=== PATIENT | male | born 1985 | race Caucasian/White ===

== ENCOUNTER 2024-01-14 19:40 | Emergency (ER) | payer MEDICARE, OTHER, MEDICAID, SELFPAY ==
[2024-01-14 19:58] VITALS: BP 136/97
[2024-01-14 21:37] VITALS: BP 110/98
--- NOTE | 2024-01-14 21:50 | ED.GENMED ---
History of Present Illness
General
Chief Complaint: Eye Problems
Source: patient
Exam Limitations: none
Time Seen by Provider: 01/14/24 20:41
Nursing documentation reviewed up to this point in time: agreed with
Travel History
Have you had any contact with someone who has COVID-19?: No
Do you have any symptoms of coronavirus? Fever > 100 degrees, chills, cough, shortness of breath, sore throat, loss of taste or smell, muscle aches, or headache?: No
History of Present Illness
History of Present Illness:
Patient with history of cerebral palsy, presents to ED secondary to multiple complaints, including eye pain with redness over the past 2 days, along with elevated blood pressure noted at facility, as well as abdominal pain. Denies fever/chills.
Denies vomiting/diarrhea. Denies trauma. Denies coughing. Denies headache. Per aid, patient frequently complaints of generalized body towards the end of day, when he's been sitting in wheelchair for an extended period of time.
Past History
Past History
ED Past Medical History: Seizures and Other (cerebral palsy, spastic quadriplegia, blindness)
ED Past Surgical History: Orthopedic and Other
Social History
Tobacco: Non-smoker
Alcohol: None
Drug: None
Personal: Single
Living: other (residential)
Employment: Not employed
Family History
Family History: Other (Noncontributory)
Review of Systems
Review of Systems
Allergies reviewed?: Yes
All Other Systems: ROS reviewed and negative except as documented in HPI and ROS
Constitutional: Reports no symptoms; Denies fever
EENT: Reports other (eye pain/redness)
Respiratory: Reports no symptoms
Cardiac: Reports no symptoms
ABD/GI: Reports abdominal pain
: Reports no symptoms
Musculoskeletal: Reports no symptoms
Skin: Reports no symptoms
Neurological: Reports no symptoms
Phy Exam
Physical Exam
Physical Exam:
Physical Exam
General: no apparent distress, not acutely ill. afebrile
Head: nc/at. eomi. inject conjunctiva noted, L>R
Neck: supple. no meningeal signs.
Heart: s1/s2 regular rate and rhythm, no murmur. equal radial pulses.
Lungs: no acute respiratory distress. clear bilaterally
Abdomen: normal bowel sounds. mild left lower abdominal/flank tenderness to palpation.
Neuro: alert and oriented. contracted UE, chronic.
Skin: no rash
Psychiatric: well kept. interactive and cooperative
Extremities: no edema. no calf tenderness.
Course
Orders/Labs/Results
Orders:
Orders
01/14/24 20:54
CT Abd/pel Without Iv Or Oral Urgent
Comment:
Reason For Exam: left flank pain
01/14/24 21:53
Basic Metabolic Panel Urgent
Complete Blood Count/With Diff Urgent
Abnormal Lab Results
01/14/24
21:53
Absolute Neuts (auto) 7.3 H 10^3/uL
(1.4-6.5)
Absolute Monos (auto) 0.7 H 10^3/uL
(0.1-0.6)
Neutrophils % 76.9 H %
(42.2-75.2)
Lymphocytes % 14.4 L %
(20.5-51.1)
BUN 25 H mg/dl
(9-20)
01/14/24 21:53
01/14/24 21:53
Vital Signs
Initial and Last Documented VS:
Initial Vital Signs
Temp Pulse Resp BP Pulse Ox
98.5 F 83 18 136/97 96
01/14/24 19:58 01/14/24 19:58 01/14/24 19:58 01/14/24 19:58 01/14/24 19:58
Last Documented Vital Signs
Temp Pulse Resp BP Pulse Ox
98.5 F 89 16 127/70 96
01/14/24 19:58 01/14/24 23:00 01/14/24 23:00 01/14/24 21:53 01/14/24 19:58
MDM/Problems Addressed
MDM/Problems Addressed:
History and exam consistent with nonspecific conjunctivitis, which may be either secondary to minor trauma due to long eyelashes versus viral/bacterial conjunctivitis. As such, decision made to advise staff to start prescribed antibiotic drops, if
symptoms persist beyond the next 24 hours. In addition, CT report discussed with staff, i.e. need for aggressive bowel regimen with stool softener and as well as laxatives. Patient will follow-up with his primary care physician as an outpatient.
Patient otherwise is afebrile, hemodynamically, and nontoxic-appearing, at time of discharge, to the care of staff member
*Critical Care Note
Total Time (30-74mins, 75-104mins- exclusive of procedures): Not Applicable
ED Attending Note
-
Portions of this chart may have been created with voice recognition software.� Occasional wrong word or��sound alike� substitutions may have occurred due to the inherent limitations of voice recognition software.
Discharge Plan
Departure
Patient Disposition: Home (Routine Discharge)
Date of Disposition: 01/14/24
Time of Disposition: 23:15
Patient with high blood pressure during this ER visit?: Yes
Condition: Good
Discharge Problem:
Conjunctivitis, Stercoral colitis
Instructions: Constipation, Adult (DC), Conjunctivitis (Noninfectious Pinkeye) (DC)
Prescriptions:
New
gentamicin 0.3 % drops
1 drp ophthalmic (eye) Q8H 5 Days Qty: 5 0RF
No Action
tizanidine 4 MG tablet
4 mg PO HS
erythromycin 1 APPLIC ointment
1 applic OPHTHALMIC HS
polyethylene glycol 3350 17 GRAMS powder in packet
17 grams PO DAILY
citalopram 20 MG tablet
40 mg PO DAILY
chlorhexidine gluconate [Hibiclens] 240 ML liquid
1 applic topical .SEE PATIENT COMMENT
Patient Comments:
Apply daily@2000 for days 1 to 7 every month. Leave on for 5 min, then rinse.
emollient combination no.34 [Hydrocerin Plus] 140 GM cream
1 applic topical BID
Patient Comments:
Apply to feet
eyelid cleanser combination 5 [OcuSoft Lid Scrub] 1 EACH pads, medicated
1 applic topical BID
Patient Comments:
Apply to eye lid
clonazepam 0.5 MG tablet
0.5 mg PO BID
baclofen 10 MG tablet
10 mg PO BID
sennosides [senna] 1 TABLET tablet
2 tab PO HS
acetaminophen 325 MG tablet
650 mg PO Q4HPRN PRN (Reason: temp > 101 F)
[id number]-nsvcikjirSq-hkhesmvnR 15 GM ointment
1 applic topical PRN PRN (Reason: prevent infection to cuts)
Patient Comments:
apply to cuts and abrasions
loperamide 2 MG capsule
4 mg PO QIDPRN PRN (Reason: loose stool)
dextromethorphan-guaifenesin 10 ML syrup
5 ml PO Q6HPRN PRN (Reason: cough)
magnesium hydroxide 30 ML suspension
30 ml PO DAILYPRN PRN (Reason: constipation)
bisacodyl [OneLAX Bisacodyl] 10 MG suppository
10 mg [place] [id number] PRN (Reason: No BM/constipation)
loratadine 10 MG tablet
10 mg PO DAILYPRN PRN (Reason: allergies)
erythromycin-benzoyl peroxide 46.6 GM gel
1 applic topical DAILYPRN PRN (Reason: acne)
peg 400-propylene glycol [Systane (propylene glycol)] 10 ML drops
1 drops ophthalmic (eye) TIDPRN PRN (Reason: irritation)
zinc oxide-vitamin B5-vit E [Balmex Adult Care] 1 APPLIC cream
1 applic topical PRN PRN (Reason: irritation with brief change)
Referrals:
Tony Summers, DO [Family Provider] -
Activity Restrictions/Additional Instructions:
As discussed, please follow-up with your primary care physician for reevaluation. You have been provided with prescription for antibiotic eye drop, to be started, if your eye redness persist beyond next 24 hours. Please keep the affected eyes
clean and dry.
Interventions
Interventions:
*Risk Screen - Suicide Last Done: 01/14/24 20:22
*General Assessment Last Done: 01/14/24 20:22
*Neglect/Abuse Screening Last Done: 01/14/24 20:22
ED- Fall Risk Assessment Last Done: 01/14/24 20:37
*ED COVID-19 Vaccine History Last Done: 01/14/24 20:37
[2024-01-14 21:53] VITALS: BP 127/70
[2024-01-14 21:59] LABS: % Basophils 0.4 % (0-2); % Eosinophils 0.9 % (0-6); % Immature Granulocytes 0.3 % (0-0.5); % Lymphocytes 14.4 % (20.5-51.1); % Monocytes 7.1 % (1.7-9.3); % Neutrophils 76.9 % (42.2-75.2); Absolute Eosinophils 0.1 10^3/uL (0-0.7); Absolute Lymphocytes 1.4 10^3/uL (1.2-3.4); Absolute Monocytes 0.7 10^3/uL (0.1-0.6); Absolute Neutrophils 7.3 10^3/uL (1.4-6.5); Hematocrit 43.2 % (39.0-52.0); Hemoglobin 14.9 g/dL (13.0-18.0); Mean Corp Hgb Conc. 34.5 g/dL (33.0-37.0); Mean Corpuscular Hgb 30.2 pg (27.0-31.0); Mean Corpuscular Volume 87.4 fL (80.0-94.0); Mean Platelet Volume 9.8 fL (7.4-10.4); Nucleated Red Blood Cells % 0 % (-); Platelet Count 240 10^3/uL (130-400); Red Blood Cell Count 4.94 10^6/uL (4.70-6.10); Red Cell Dist. Width 12.7 % (11.5-14.5); White Blood Cell Count 9.5 10^3/uL (4.8-10.8)
[2024-01-14 22:16] LABS: Blood Urea Nitrogen 25 mg/dl (9-20); Calcium 9.2 mg/dl (8.4-10.2); Carbon Dioxide 24 mmol/L (22-30); Chloride 106 mmol/L (98-107); Glucose 98 mg/dl (70-99); Potassium 3.8 mmol/L (3.5-5.1); Sodium 135 mmol/L (135-145); eGFR > 60.00
== END 2024-01-14 23:30 | disposition home or self-care (01) ==
LOC: EMR 19:40
PROVIDERS: EMERGENCY PHYSICIAN Emergency Medicine; FAMILY PHYSICIAN Internal Medicine
DX: H10.9 Unspecified conjunctivitis (principal); K52.89 Other specified noninfective gastroenteritis and colitis; G80.8 Other cerebral palsy; G80.0 Spastic quadriplegic cerebral palsy
CPT/HCPCS: 99284; 74176; 80048; 85025

== ENCOUNTER → 2024-02-18 08:28 | Outpatient (REF) | payer MEDICARE, OTHER, MEDICAID, SELFPAY | LOC: RAD 08:28 | PROVIDERS: ATTENDING PHYSICIAN Internal Medicine | DX: N43.2 Other hydrocele (principal); K76.0 Fatty (change of) liver, not elsewhere classified; D73.4 Cyst of spleen | CPT/HCPCS: 76700; 76870; 93976 ==

== ENCOUNTER → 2025-02-18 16:21 | Outpatient (REF) | payer MEDICARE, OTHER, MEDICAID, SELFPAY | LOC: RAD 16:21 | PROVIDERS: ATTENDING PHYSICIAN Internal Medicine | DX: M25.672 Stiffness of left ankle, not elsewhere classified (principal) | CPT/HCPCS: 73600 ==

== ENCOUNTER → 2025-03-02 17:31 | Outpatient (REF) | payer MEDICARE, OTHER, MEDICAID, SELFPAY | LOC: RAD 17:31 | PROVIDERS: ATTENDING PHYSICIAN Podiatrist; FAMILY PHYSICIAN Internal Medicine | DX: M79.671 Pain in right foot (principal); M79.672 Pain in left foot | CPT/HCPCS: 73610 ==

== ENCOUNTER 2025-03-10 12:56 | Emergency (ER) | payer MEDICARE, OTHER, MEDICAID, SELFPAY ==
[2025-03-10 13:03] VITALS: BP 152/110
--- NOTE | 2025-03-10 14:58 | ED.GENMED ---
History of Present Illness
General
Chief Complaint: Breathing Problem
Time Seen by Provider: 03/10/25 14:24
History of Present Illness
History of Present Illness:
39-year-old male with history of cerebral palsy presenting for an episode of choking after eating lunch. Patient was eating a sandwich, noted to have an episode of choking, received Heimlich maneuver with subsequent production of small piece of
sandwich. Patient has been acting appropriately since the incident, has tolerated p.o. patient currently no distress. Somewhat limited historian given his cerebral palsy and spastic quadriplegia. Denies any present shortness of breath. Does note
some abdominal soreness. No additional history reported at this time
Past History
Past History
ED Past Medical History: Seizures and Other (cerebral palsy, spastic quadriplegia, blindness)
ED Past Surgical History: Orthopedic and Other
Social History
Tobacco: Non-smoker
Alcohol: None
Drug: None
Personal: Single
Living: other (long term)
Employment: Not employed
Family History
Family History: Other (Noncontributory)
Phy Exam
Physical Exam
Physical Exam:
General: Well-appearing, no clinical signs of dehydration, nontoxic and in no acute distress
HEENT: protecting airway
Neck: appears supple
CV: Normal heart rate, regular rhythm
Resp: No accessory muscle use, no increased work of breathing, lungs clear to auscultation bilaterally
Abd: Soft and non-distended, no tenderness to palpation
Extremities: No deformities, no swelling
Neuro: alert, no focal neurologic deficit
: deferred
Rectal: deferred
Psych: Normal affect
Skin: Intact
Course
Vital Signs
Initial and Last Documented VS:
Initial Vital Signs
Temp Pulse Resp BP Pulse Ox
98.9 F 110 16 152/110 96
03/10/25 13:03 03/10/25 13:03 03/10/25 13:03 03/10/25 13:03 03/10/25 13:03
Last Documented Vital Signs
Temp Pulse Resp BP Pulse Ox
98.9 F 110 16 152/110 96
03/10/25 13:03 03/10/25 13:03 03/10/25 13:03 03/10/25 13:03 03/10/25 13:03
MDM/Problems Addressed
MDM/Problems Addressed:
39-year-old male with history of cerebral palsy and spastic quadriplegia presenting to the emergency department after an episode of choking status post Heimlich maneuver. Vital signs are normal.
On exam patient is resting comfortably, no acute distress. Lungs are clear to auscultation, abdomen soft and nondistended. Airway free of obstruction at this time do not suspect aspiration pneumonia or any retained foreign body from choking
episode. Event occurred 2 hours prior to arrival and patient has been tolerating p.o. feel stable for discharge. Advised soft diet for the next 1 to 2 days. Otherwise feel stable for discharge. Return precautions discussed and patient, mother,
property caretaker verbalized understanding
*Critical Care Note
Total Time (30-74mins, 75-104mins- exclusive of procedures): Not Applicable
ED Attending Note
-
Portions of this chart may have been created with voice recognition software.� Occasional wrong word or��sound alike� substitutions may have occurred due to the inherent limitations of voice recognition software.
Discharge Plan
Departure
Prescriptions:
No Action
tizanidine 4 MG tablet
4 mg PO HS
erythromycin 1 APPLIC ointment
1 applic OPHTHALMIC HS
polyethylene glycol 3350 17 GRAMS powder in packet
17 grams PO DAILY
citalopram 20 MG tablet
40 mg PO DAILY
chlorhexidine gluconate [Hibiclens] 240 ML liquid
1 applic topical .SEE PATIENT COMMENT
Patient Comments:
Apply daily@2000 for days 1 to 7 every month. Leave on for 5 min, then rinse.
emollient combination no.34 [Hydrocerin Plus] 140 GM cream
1 applic topical BID
Patient Comments:
Apply to feet
eyelid cleanser combination 5 [OcuSoft Lid Scrub] 1 EACH pads, medicated
1 applic topical BID
Patient Comments:
Apply to eye lid
clonazepam 0.5 MG tablet
0.5 mg PO BID
baclofen 10 MG tablet
10 mg PO BID
sennosides [senna] 1 TABLET tablet
2 tab PO HS
acetaminophen 325 MG tablet
650 mg PO Q4HPRN PRN (Reason: temp > 101 F)
[id number]-kaxpflntU 15 GM ointment
1 applic topical PRN PRN (Reason: prevent infection to cuts)
Patient Comments:
apply to cuts and abrasions
loperamide 2 MG capsule
4 mg PO QIDPRN PRN (Reason: loose stool)
dextromethorphan-guaifenesin 10 ML syrup
5 ml PO Q6HPRN PRN (Reason: cough)
magnesium hydroxide 30 ML suspension
30 ml PO DAILYPRN PRN (Reason: constipation)
bisacodyl [OneLAX Bisacodyl] 10 MG suppository
10 mg MS [id number] PRN (Reason: No BM/constipation)
loratadine 10 MG tablet
10 mg PO DAILYPRN PRN (Reason: allergies)
erythromycin-benzoyl peroxide 46.6 GM gel
1 applic topical DAILYPRN PRN (Reason: acne)
peg 400-propylene glycol [Systane (propylene glycol)] 10 ML drops
1 drops ophthalmic (eye) TIDPRN PRN (Reason: irritation)
zinc oxide-vitamin B5-vit E [Balmex Adult Care] 1 APPLIC cream
1 applic topical PRN PRN (Reason: irritation with brief change)
gentamicin 0.3 % drops
1 drp ophthalmic (eye) Q8H 5 Days Qty: 5 0RF
Referrals:
Tony Summers, DO [Family Provider] -
Interventions
Interventions:
*Risk Screen - Suicide Last Done: 03/10/25 13:03
*General Assessment Last Done: 03/10/25 14:29
*Neglect/Abuse Screening Last Done: 03/10/25 13:03
*ED- Fall Risk Assessment Last Done: 03/10/25 14:29
*ED COVID-19 Vaccine History Last Done: 03/10/25 14:29
ED- Cardiac Assessment Last Done: 03/10/25 14:29
ED- Pulmonary Assessment Last Done: 03/10/25 14:29
Discharge Date and Time
Print Language: [place]
== END 2025-03-10 15:25 | disposition home or self-care (01) ==
LOC: EMR 12:56
PROVIDERS: EMERGENCY PHYSICIAN Student in an Organized Health Care Education/Training Program; FAMILY PHYSICIAN Internal Medicine
DX: R09.89 Other specified symptoms and signs involving the circulatory and respiratory systems (principal); G80.0 Spastic quadriplegic cerebral palsy
CPT/HCPCS: 99282